=== PATIENT | female | born 1960 | race Caucasian/White ===

== ENCOUNTER 2024-09-18 09:18 | Day surgery (SDC) | payer BC, MEDICARE ==
[2024-09-18] MEDS ORDERED: Ondansetron PF 4 MG/2 ML Vial IVP PRN (09:27)
[2024-09-18 09:51] VITALS: BP 147/85; TEMP 98.2
[2024-09-18] MEDS: Multivitamins, Adult 10 ML, Thiamine HCl 100 MG in Sodium Chloride 0.9% 1,000 ML IV SCH (10:00)
== END 2024-09-18 12:12 | disposition home or self-care (01) ==
LOC: ONC/OP 09:18
PROVIDERS: ATTEND Surgery
DX: E86.0 Dehydration (principal)
CPT/HCPCS: 96360; 96361; J3411; J7030

== ENCOUNTER 2024-12-31 10:13 | Outpatient (CLI) | payer MEDICARE, BC ==
[2024-12-31 11:31] LABS: #Basophils 0.08 10x3/uL (0.0-0.2); #Eosinophils 0.14 10x3/uL (0.0-0.7); #Monocytes 0.33 10x3/uL (0.11-0.59); #Neutrophils 3.99 10x3/uL (1.40-6.50); %Basophils 1.3 % (0.0-1.0); %Eosinophils 2.3 % (0.0-10.0); %Lymphocytes 24.8 % (21.0-51.0); %Monocytes 5.4 % (0.0-10.0); %Neutrophils 65.9 % (42.0-75.0); Hematocrit 40.5 % (36.0-47.0); Hemoglobin 13.3 g/dL (12.0-16.0); Mean Corpuscular Hemoglobin 29.9 pg (27.0-31.0); Mean Corpuscular Volume 91.0 fL (78.0-98.0); Platelet Count 175 10x3/uL (130-400); Red Blood Cell (RBC) Count 4.45 mill/uL (4.20-5.40); White Blood Cell (WBC) Count 6.06 10x3/uL (4.8-10.8)
[2024-12-31 11:51] LABS: INR-International Normal Ratio 1.1; PTT 32.6 sec (22.9-36.1); Prothrombin Time 14.8 sec (12.0-14.7)
[2024-12-31 11:53] LABS: ALT (SGPT) 27 U/L (Less than 34); ALT (SGPT) 28 U/L (Less than 34); AST (SGOT) 47 U/L (11-34); Albumin 3.5 g/dL (3.1-4.5); Alkaline Phosphatase 59 U/L (40-110); Anion Gap 14 mmol/L (10-20); BUN (Urea Nitrogen) 11 mg/dL (9.8-20.1); Bilirubin, Direct 0.2 mg/dL (0.1-0.3); Bilirubin, Total 0.5 mg/dL (0.3-1.2); Calc. Creatinine Clearance 0 mL/min (70-130); Calcium 8.7 mg/dL (7.8-10.44); Carbon Dioxide 27 mmol/L (23-31); Chloride 103 mmol/L (98-107); Globulin 2.8 g/dL (2.4-3.5); Glucose 165 mg/dL (80-115); Potassium 3.1 mmol/L (3.5-5.1); Sodium 141 mmol/L (136-145)
== END 2024-12-31 10:14 | disposition home or self-care (01) ==
LOC: LABBT 10:13
PROVIDERS: ATTEND Surgery
DX: Z01.812 Encounter for preprocedural laboratory examination (principal); K94.23 Gastrostomy malfunction
CPT/HCPCS: 80053; 85025; 85610; 85730

== ENCOUNTER 2025-01-10 09:05 | Inpatient (IN) | payer MEDICARE, BC ==
[2025-01-10] MEDS ORDERED: Scopolamine 1 mg/72 hour Patch ONE (09:55)
[2025-01-10 11:34] LABS: Anion Gap 13 mmol/L (10-20); BUN (Urea Nitrogen) 11 mg/dL (9.8-20.1); Calc. Creatinine Clearance 123 mL/min (70-130); Calcium 9.1 mg/dL (7.8-10.44); Carbon Dioxide 27 mmol/L (23-31); Chloride 106 mmol/L (98-107); Glucose 119 mg/dL (80-115); Potassium 3.0 mmol/L (3.5-5.1); Sodium 143 mmol/L (136-145)
[2025-01-10] MEDS ORDERED: fentaNYL PF 100 MCG/2 ML SYRINGE ONE (11:52)
[2025-01-10] MEDS ORDERED: Lidocaine 1% PF 5 ML VIAL ONE (11:53)
[2025-01-10] MEDS ORDERED: Ondansetron PF 4 MG/2 ML Vial ONE (11:53)
[2025-01-10] MEDS ORDERED: Bupivacaine 0.25% HCL 30 ML VIAL ONE (12:45)
[2025-01-10] MEDS ORDERED: PHENYLEPHRINE-NS 100 MCG/ML 10 ML SYRINGE ONE (14:02)
[2025-01-10] MEDS ORDERED: Rocuronium Bromide 10 MG/ML (10ML VIAL) ONE ×2 (14:02)
[2025-01-10] MEDS ORDERED: Metoprolol Tartrate 5 MG (5 mL) VIAL ONE (14:56)
[2025-01-10] MEDS ORDERED: SUGAMMADEX SODIUM 200 MG/2 ML VIAL ONE (17:13)
[2025-01-10] MEDS ORDERED: Dextrose 50% Abboject 50 ML SYRINGE SLOW IVP PRN (17:58)
[2025-01-10] MEDS ORDERED: Ondansetron PF 4 MG/2 ML Vial IVP PRN (17:58)
[2025-01-10] MEDS ORDERED: diphenhydrAMINE 50 MG/ML VIAL IVP PRN (17:58)
[2025-01-10] MEDS ORDERED: Glucagon 1 MG/ML KIT IM PRN (17:58)
[2025-01-10] MEDS ORDERED: hydrALAZINE 20 MG/ML VIAL SLOW IVP PRN (17:58)
[2025-01-10] MEDS: D5 1/2 NS w/20 mEq KCL 1,000 ML IV SCH (19:57)
[2025-01-10 21:08] VITALS: BMI 23.1
[2025-01-10 21:13] LABS: ALT (SGPT) 68 U/L (Less than 34); AST (SGOT) 149 U/L (11-34); Albumin 3.6 g/dL (3.1-4.5); Alkaline Phosphatase 60 U/L (40-110); Anion Gap 16 mmol/L (10-20); BUN (Urea Nitrogen) 9 mg/dL (9.8-20.1); Bilirubin, Total 0.8 mg/dL (0.3-1.2); Calc. Creatinine Clearance 102 mL/min (70-130); Calcium 8.6 mg/dL (7.8-10.44); Carbon Dioxide 22 mmol/L (23-31); Chloride 106 mmol/L (98-107); Globulin 2.5 g/dL (2.4-3.5); Glucose 252 mg/dL (80-115); Potassium 3.1 mmol/L (3.5-5.1); Sodium 141 mmol/L (136-145)
[2025-01-10 21:23] LABS: #Basophils Less than 0.03 10x3/uL (0.0-0.2); #Eosinophils Less than 0.03 10x3/uL (0.0-0.7); #Monocytes 0.51 10x3/uL (0.11-0.59); #Neutrophils 10.27 10x3/uL (1.40-6.50); %Basophils 0.2 % (0.0-1.0); %Eosinophils 0.1 % (0.0-10.0); %Lymphocytes 3.0 % (21.0-51.0); %Monocytes 4.6 % (0.0-10.0); %Neutrophils 91.9 % (42.0-75.0); Hematocrit 34.5 % (36.0-47.0); Hemoglobin 11.0 g/dL (12.0-16.0); Mean Corpuscular Hemoglobin 29.6 pg (27.0-31.0); Mean Corpuscular Volume 92.7 fL (78.0-98.0); Platelet Count 149 10x3/uL (130-400); Red Blood Cell (RBC) Count 3.72 mill/uL (4.20-5.40); White Blood Cell (WBC) Count 11.16 10x3/uL (4.8-10.8)
[2025-01-10] MEDS: Ketorolac Tromethamine 30 MG (1 mL) VIAL IVP SCH (22:20)
[2025-01-10] MEDS: Potassium Chloride 10 MEQ in Premix 1 BAG IVPB SCH ×2 (22:21→23:19)
[2025-01-11 00:38] LABS: Bacteria/HPF None Seen HPF (None Seen); CAUTI Indications for Culture Dysuria,urgency,freq; Glucose, Urine (Dipstick) 500 mg/dL (Negative); Leukocyte Negative Leu/uL (Negative); Protein, Urine (Dipstick) Negative (Neg-Trace); RBC/HPF 0-3 HPF (0-3); Specific Gravity, Urine 1.008 (1.002-1.036); WBC/HPF 0-3 HPF (0-3)
[2025-01-11 00:41] LABS: Urine Culture Reflex No No
[2025-01-11 03:27] LABS: #Basophils 0.03 10x3/uL (0.0-0.2); #Eosinophils Less than 0.03 10x3/uL (0.0-0.7); #Monocytes 0.46 10x3/uL (0.11-0.59); #Neutrophils 7.10 10x3/uL (1.40-6.50); %Basophils 0.4 % (0.0-1.0); %Eosinophils 0.0 % (0.0-10.0); %Lymphocytes 8.1 % (21.0-51.0); %Monocytes 5.6 % (0.0-10.0); %Neutrophils 85.7 % (42.0-75.0); Hematocrit 32.0 % (36.0-47.0); Hemoglobin 10.0 g/dL (12.0-16.0); Mean Corpuscular Hemoglobin 28.8 pg (27.0-31.0); Mean Corpuscular Volume 92.2 fL (78.0-98.0); Platelet Count 124 10x3/uL (130-400); Red Blood Cell (RBC) Count 3.47 mill/uL (4.20-5.40); White Blood Cell (WBC) Count 8.28 10x3/uL (4.8-10.8)
[2025-01-11 03:51] LABS: Anion Gap 14 mmol/L (10-20); BUN (Urea Nitrogen) 10 mg/dL (9.8-20.1); Calc. Creatinine Clearance 117 mL/min (70-130); Calcium 8.6 mg/dL (7.8-10.44); Carbon Dioxide 24 mmol/L (23-31); Chloride 106 mmol/L (98-107); Glucose 198 mg/dL (80-115); Potassium 3.7 mmol/L (3.5-5.1); Sodium 140 mmol/L (136-145)
[2025-01-11] MEDS: Pantoprazole 40 MG VIAL IVP SCH (08:29)
[2025-01-11] MEDS: Enoxaparin 40 MG (0.4 mL) SYRINGE SC SCH (08:29)
[2025-01-11] MEDS: Ketorolac Tromethamine 30 MG (1 mL) VIAL IVP PRN (08:30)
[2025-01-11] MEDS: Mupirocin 1 GM TUBE TP SCH (08:30)
[2025-01-11 11:02] VITALS: BMI 22.6
[2025-01-12 06:47] LABS: #Basophils 0.03 10x3/uL (0.0-0.2); #Eosinophils 0.07 10x3/uL (0.0-0.7); #Monocytes 0.26 10x3/uL (0.11-0.59); #Neutrophils 6.29 10x3/uL (1.40-6.50); %Basophils 0.4 % (0.0-1.0); %Eosinophils 1.0 % (0.0-10.0); %Lymphocytes 8.0 % (21.0-51.0); %Monocytes 3.6 % (0.0-10.0); %Neutrophils 86.7 % (42.0-75.0); Hematocrit 28.6 % (36.0-47.0); Hemoglobin 9.2 g/dL (12.0-16.0); Mean Corpuscular Hemoglobin 29.5 pg (27.0-31.0); Mean Corpuscular Volume 91.7 fL (78.0-98.0); Platelet Count 82 10x3/uL (130-400); Red Blood Cell (RBC) Count 3.12 mill/uL (4.20-5.40); White Blood Cell (WBC) Count 7.25 10x3/uL (4.8-10.8)
[2025-01-12 06:55] LABS: ALT (SGPT) 107 U/L (Less than 34); AST (SGOT) 224 U/L (11-34); Albumin 2.5 g/dL (3.1-4.5); Alkaline Phosphatase 46 U/L (40-110); Anion Gap 9 mmol/L (10-20); BUN (Urea Nitrogen) 6 mg/dL (9.8-20.1); Bilirubin, Total 0.6 mg/dL (0.3-1.2); Calc. Creatinine Clearance 135 mL/min (70-130); Calcium 8.1 mg/dL (7.8-10.44); Carbon Dioxide 23 mmol/L (23-31); Chloride 106 mmol/L (98-107); Globulin 2.1 g/dL (2.4-3.5); Glucose 157 mg/dL (80-115); Potassium 3.1 mmol/L (3.5-5.1); Sodium 135 mmol/L (136-145)
[2025-01-12] MEDS ORDERED: diphenhydrAMINE 50 MG/ML VIAL IM/IV PRN (08:45)
[2025-01-12] MEDS ORDERED: diphenhydrAMINE 25 MG CAP PO PRN (08:45)
[2025-01-12] MEDS: Morphine 50 MG in Sodium Chloride 0.9% 45 ML IV SCH (09:27)
[2025-01-12 13:19] VITALS: BP 129/69
[2025-01-12] MEDS: Albumin 5% 12.5 GM (250 mL) BOT IVPB SCH (14:44)
[2025-01-12] MEDS: D5 0.9% NS w/ 20 mEq KCl 1,000 ML IV SCH (17:18)
[2025-01-13 02:55] LABS: #Basophils Less than 0.03 10x3/uL (0.0-0.2); #Eosinophils 0.30 10x3/uL (0.0-0.7); #Monocytes 0.18 10x3/uL (0.11-0.59); #Neutrophils 4.70 10x3/uL (1.40-6.50); %Basophils 0.2 % (0.0-1.0); %Eosinophils 5.1 % (0.0-10.0); %Lymphocytes 10.3 % (21.0-51.0); %Monocytes 3.1 % (0.0-10.0); %Neutrophils 80.4 % (42.0-75.0); Hematocrit 30.2 % (36.0-47.0); Hemoglobin 9.6 g/dL (12.0-16.0); Mean Corpuscular Hemoglobin 29.3 pg (27.0-31.0); Mean Corpuscular Volume 92.1 fL (78.0-98.0); Platelet Count 95 10x3/uL (130-400); Red Blood Cell (RBC) Count 3.28 mill/uL (4.20-5.40); White Blood Cell (WBC) Count 5.84 10x3/uL (4.8-10.8)
[2025-01-13 03:12] LABS: ALT (SGPT) 83 U/L (Less than 34); AST (SGOT) 94 U/L (11-34); Albumin 2.7 g/dL (3.1-4.5); Alkaline Phosphatase 56 U/L (40-110); Anion Gap 10 mmol/L (10-20); BUN (Urea Nitrogen) 11 mg/dL (9.8-20.1); Bilirubin, Total 0.8 mg/dL (0.3-1.2); Calc. Creatinine Clearance 117 mL/min (70-130); Calcium 8.1 mg/dL (7.8-10.44); Carbon Dioxide 22 mmol/L (23-31); Chloride 109 mmol/L (98-107); Globulin 2.2 g/dL (2.4-3.5); Glucose 176 mg/dL (80-115); Potassium 3.6 mmol/L (3.5-5.1); Sodium 137 mmol/L (136-145)
[2025-01-13] MEDS: Albumin 25% 25 GM (100 mL) BOT IVPB SCH (09:34)
[2025-01-13] MEDS: FLU (Fluad Triv) 25-26 (65UP)PF 45 MCG/0.5 ML Syringe IM ONE (09:37)
[2025-01-13] MEDS: VANCOMYCIN 1.75 GM/350 ML Premix BAG IVPB SCH (09:37)
[2025-01-13] MEDS ORDERED: Iopamidol-370 76% 500 ML MDV (1 ML CHARGE) ONE (10:12)
[2025-01-13] MEDS: Ondansetron PF 4 MG/2 ML Vial IVP PRN (13:05)
[2025-01-13] MEDS: Metoclopramide HCl 10 MG (2 mL) VIAL IVP SCH (15:05)
[2025-01-13 17:00] VITALS: TEMP 99.8
[2025-01-13] MEDS ORDERED: Vancomycin HCl 1.25 GM in Sodium Chloride 0.9% 250 ML 250 ML IVPB SCH (21:00)
== END 2025-01-13 17:20 | disposition critical access hospital (66) | DRG 327 ==
LOC: SDC 09:05 → EDSTATUS 10:30 → CCU 17:58
PROVIDERS: ADMIT Surgery; ATTEND Surgery
PROC: 0DB64ZZ Excision of Stomach, Percutaneous Endoscopic Approach (ICD-10-PCS; principal; 2025-01-10)
PROC: 0WQF4ZZ Repair Abdominal Wall, Percutaneous Endoscopic Approach (ICD-10-PCS; 2025-01-10)
PROC: 8E0W4CZ Robotic Assisted Procedure of Trunk Region, Percutaneous Endoscopic Approach (ICD-10-PCS; 2025-01-10)
PROC: 0T9B70Z Drainage of Bladder with Drainage Device, Via Natural or Artificial Opening (ICD-10-PCS; 2025-01-10)
PROC: 05HM33Z Insertion of Infusion Device into Right Internal Jugular Vein, Percutaneous Approach (ICD-10-PCS; 2025-01-10)
PROC: 30233J1 Transfusion of Nonautologous Serum Albumin into Peripheral Vein, Percutaneous Approach (ICD-10-PCS; 2025-01-13)
PROC: 3E03329 Introduction of Other Anti-infective into Peripheral Vein, Percutaneous Approach (ICD-10-PCS; 2025-01-13)
DX: K25.9 Gastric ulcer, unspecified as acute or chronic, without hemorrhage or perforation (principal); J90 Pleural effusion, not elsewhere classified; K56.600 Partial intestinal obstruction, unspecified as to cause; J98.11 Atelectasis; K46.0 Unspecified abdominal hernia with obstruction, without gangrene; G89.18 Other acute postprocedural pain; E87.6 Hypokalemia; F41.9 Anxiety disorder, unspecified
CPT/HCPCS: 36415; 36416; 71045; 74177; 80048; 80053; 81001; 85025; 87040; 87077; 87149; 88307; C1751; C1889; J0169; J0665; J1100; J1650; J1885; J2270; J2405; J2470; J2543; J2765; J3010; J3375; J3480; J7120; P9045; P9047; Q9967; S2900